=== PATIENT | male | born 1985 | race Caucasian/White ===

== ENCOUNTER 2024-09-28 10:30 | Emergency (ER) | payer OTHER, SELFPAY ==
[2024-09-28 10:48] VITALS: BP 161/99
[2024-09-28 11:02] LABS: Hematocrit 39.0 % (39.0-52.0); Hemoglobin 12.3 g/dL (13.0-18.0); Mean Corp Hgb Conc. 31.5 g/dL (33.0-37.0); Mean Corpuscular Volume 68.7 fL (80.0-94.0); Nucleated Red Blood Cells % 0 % (-); Platelet Count 214 10^3/uL (130-400); Red Cell Dist. Width 16.0 % (11.5-14.5)
[2024-09-28 11:32] LABS: ALT (SGPT) 26 U/L (0-50); AST (SGOT) 27 U/L (17-59); Albumin 5.1 g/dl (3.5-5.0); Alkaline Phosphatase 69 U/L (38-126); Blood Urea Nitrogen 17 mg/dl (9-20); Calcium 9.3 mg/dl (8.4-10.2); Carbon Dioxide 29 mmol/L (22-30); Chloride 103 mmol/L (98-107); Glucose 108 mg/dl (70-99); Potassium 4.5 mmol/L (3.5-5.1); Sodium 139 mmol/L (135-145); Total Protein 7.7 g/dl (6.3-8.2); eGFR > 60.00
[2024-09-28 11:40] LABS: Troponin I < 0.012 ng/ml
[2024-09-28 12:02] VITALS: BP 142/93
[2024-09-28 13:00] VITALS: BP 135/93
--- NOTE | 2024-09-28 13:16 | ED.GENMED ---
History of Present Illness
General
Chief Complaint: Chest Pain
Source: patient
Time Seen by Provider: 09/28/24 13:00
History of Present Illness
History of Present Illness:
39-year-old male with no known significant medical history presenting to the emergency department for evaluation of chest pain/GERD like sensation few days ago after eating a large hoagie, also developed a abnormal sensation to his left upper
extremity prompting him to want to come to the ER for further evaluation. Symptoms are currently resolved. Patient reportedly had an outpatient EKG done and was told it was abnormal so he should come to the ER. Patient's biggest area of concern
is that his father from an VT at the age of 67 and his sister recently had an VT at the age of 45. Patient does smoke a little bit more than 1/2 pack/day. He did not take any medications for pain. Did not see a government services professional
previously. Denies any recent travel, known sick contacts, recent antibiotics. He also denies cough, hemoptysis, exertional dyspnea, orthopnea, lower extremity edema or any other concerns. I did review the patient's outpatient EKG which did not
yield any acute ischemic changes.
Past History
Past History
ED Past Medical History: None
ED Past Surgical History: None
Social History
Tobacco: Smoker
Alcohol: None
Drug: None
Personal:
Living: with family
Employment: Employed
Review of Systems
Review of Systems
All Other Systems: ROS reviewed and negative except as documented in HPI and ROS
Phy Exam
Physical Exam
Physical Exam:
GENERAL: Alert , in no apparent distress
EYE: Clear conjunctiva
NECK: Supple
ENT: o/p clr, mmm.
CARDIAC: Regular rate and rhythm .
LUNGS: Clear breath sounds bilaterally, no acute respiratory distress, no wheezes/rales/rhonchi
ABDOMEN: Soft, without focal tenderness, no r/g, no cvat
NEUROLOGICAL: Alert and oriented
SKIN: Warm and dry, skin intact.
MUSCULOSKELETAL: No edema, well perfused.
PSYCH: Normal and appropriate interaction.
Scores
Heart Failure Risk
Heart Failure Risk Score: Not Applicable
Heart Score for Chest Pain Patients
STEMI patient?: No
History: Slightly or Non-Suspicious
ECG: Normal
Age: </= 45 years
Risk Factors: 1 or 2 Risk Factors
Troponin: </= Normal Limit
Heart Score for Chest Pain Patients: 1
Heart Score Risk: 2.5% MACE over next 6 weeks
Withdrawal Assessment of Alcohol
Withdrawal Assessment Completed?: Not applicable
Course
Orders/Labs/Results
Orders:
Orders
09/28/24 10:31
Electrocardiogram (*1) Urgent
Reason for Study: Abnormal EKG
EKG- Treatment ONCE
09/28/24 10:51
Chest [CR Chest - 2 Views ] Urgent
Comment:
Reason For Exam: chest pain
09/28/24 10:54
Complete Blood Count/With Diff Urgent
09/28/24 10:55
Comprehensive Metabolic Panel Urgent
Troponin I Urgent
09/28/24 13:36
Troponin I Urgent
Abnormal Lab Results
09/28/24 09/28/24
10:54 10:55
Hgb 12.3 L g/dL
(13.0-18.0)
MCV 68.7 L fL
(80.0-94.0)
MCH 21.7 L pg
(27.0-31.0)
MCHC 31.5 L g/dL
(33.0-37.0)
RDW 16.0 H %
(11.5-14.5)
Absolute Lymphs (auto) 1.1 L 10^3/uL
(1.2-3.4)
Lymphocytes % 15.3 L %
(20.5-51.1)
Glucose 108 H mg/dl
(70-99)
Albumin 5.1 H g/dl
(3.5-5.0)
09/28/24 10:54
09/28/24 10:55
Vital Signs
Initial and Last Documented VS:
Initial Vital Signs
Temp Pulse Resp BP Pulse Ox
98.4 F 89 18 161/99 100
09/28/24 10:48 09/28/24 10:48 09/28/24 10:48 09/28/24 10:48 09/28/24 10:48
Last Documented Vital Signs
Temp Pulse Resp BP Pulse Ox
98.4 F 74 14 135/93 100
09/28/24 10:48 09/28/24 14:30 09/28/24 14:30 09/28/24 13:00 09/28/24 13:23
MDM/Problems Addressed
Differential Diagnosis Includes:
GERD/gastritis
Peptic ulcer disease
ACS considered given patient does have risk factors including family history and smoking history
Other than chest pain there is no other symptoms to suggest PE
Pericarditis/myocarditis
Less concern for acute infectious etiology
Anxiety
Muscular etiology
MDM/Problems Addressed:
39-year-old male presenting to the ER for evaluation of chest discomfort a few days ago that developed after eating a large sandwich. Patient did also feel some discomfort into his left upper extremity. Presently asymptomatic. Based off
presentation I am less suspicious for an acute ACS event however patient does have risk factors including significant family history as well as smoking history. EKG done in triage shows normal sinus rhythm without ischemic changes or ectopy.
Patient currently hemodynamically stable. Blood pressure noted to be elevated on initial evaluation. Will repeat troponin. Will notify the chest pain hotline to help expedite outpatient follow-up. Anticipate discharge home.
*Pulse Oximetry
SaO2: 100
Oxygen Mode of Delivery: Room air
Patient hypoxic: no
*EKG
Heart Rate: 82
Rate: normal
Rhythm: sinus
[place]: normal axis
Ischemia: no ischemia
*Pet Training Instructor Interpretation
Rate: normal
Heart Rate: 76
Rhythm: sinus
*Critical Care Note
Total Time (30-74mins, 75-104mins- exclusive of procedures): Not Applicable
Patient Management
Escalation/DeEscalation of care consider admission/obs:
Patient remains chest pain-free. Repeat troponin remains negative. Notified the chest pain hotline to help expedite outpatient follow-up. Patient aware of return precautions to the ER.
ED Attending Note
-
Portions of this chart may have been created with voice recognition software.� Occasional wrong word or��sound alike� substitutions may have occurred due to the inherent limitations of voice recognition software.
Discharge Plan
Departure
Patient Disposition: Home (Routine Discharge)
Date of Disposition: 09/28/24
Time of Disposition: 14:11
Patient with high blood pressure during this ER visit?: Yes
Discharge Problem:
Chest pain
Instructions: Chest Pain CBC Follow Up
Prescriptions:
No Action
doxycycline hyclate 100 MG capsule
100 mg PO Q12 Qty: 14 0RF
Referrals:
Arely Horn PA-C [Family Provider, Family Practice]
Interventions
Interventions:
*Risk Screen - Suicide Last Done: 09/28/24 10:48
*General Assessment Last Done: 09/28/24 10:48
*Neglect/Abuse Screening Last Done: 09/28/24 10:48
*ED- Fall Risk Assessment Last Done: 09/28/24 12:06
*ED COVID-19 Vaccine History Last Done: 09/28/24 12:06
*Nursing Disposition Last Done: 09/28/24 15:00
ED- Cardiac Assessment Last Done: 09/28/24 12:46
Discharge Date and Time
Discharge Date/Time: 08/11/25 15:00
Print Language: YAKUT
[2024-09-28 14:29] LABS: Troponin I < 0.012 ng/ml
== END 2024-09-28 15:00 | disposition home or self-care (01) ==
LOC: EMR 10:30
PROVIDERS: Physician Assistant Medical; Student in an Organized Health Care Education/Training Program; EMERGENCY PHYSICIAN Emergency Medicine; FAMILY PHYSICIAN Physician Assistant Medical
DX: R07.89 Other chest pain (principal); F17.210 Nicotine dependence, cigarettes, uncomplicated; K21.9 Gastro-esophageal reflux disease without esophagitis
CPT/HCPCS: 99283; 71046; 80053; 84484; 85025; 93005